=== PATIENT | female | born 1945 | race Caucasian/White ===

== ENCOUNTER → 2017-02-10 | Outpatient (CLI) | payer OTHER, MEDICARE ==
[~2017-02-10] MED LIST: CALC-393 PO; CLR10 PO; GLUC10007 PO; OMEP40CA PO
[2017-02-10 18:11] LABS: HEMATOCRIT 36.1 % (37-47); MEAN CELL VOLUME 90.5 fL (80-100); MEAN CORPUSCULAR HEMOGLOBIN 28.8 pg (25-34); MEAN CORPUSCULAR HGB CONC 31.9 g/dl (32-36); MEAN PLATELET VOLUME 9.5 fL (7.4-10.4); PLATELET COUNT 316 K/uL (130-400); RED BLOOD COUNT 3.99 M/uL (4.2-5.4); WHITE BLOOD COUNT 7.95 K/uL (4.8-10.8)
[2017-02-10 19:10] LABS: ALT/SGPT 24 U/L (12-78); AST/SGOT 15 U/L (15-37); BLOOD UREA NITROGEN 28 mg/dl (7-18); BUN/CREATININE RATIO 23.4 (10-20); CALCIUM 8.8 mg/dl (8.5-10.1); CARBON DIOXIDE 24 mmol/L (21-32); CHLORIDE 106 mmol/L (98-107); GLUCOSE 107 mg/dl (70-99); POTASSIUM 4.6 mmol/L (3.5-5.1); SODIUM 138 mmol/L (136-145)
[2017-02-10 19:13] LABS: ALB/GLOB RATIO 0.9 (0.9-2); ALKALINE PHOSPHATASE 104 U/L (45-117); CHOLESTEROL 239 mg/dl (0-200); CHOLESTEROL/HDL RATIO 4.8; HDL CHOLESTEROL 50 mg/dl; LDL CHOLESTEROL CALCULATED 133 mg/dl; TRIGLYCERIDES 278 mg/dl (0-150); VERY LOW DENSITY LIPOPROT CALC 56 mg/dl
[2017-02-11 05:51] LABS: ESTIMATED AVERAGE GLUCOSE 120 mg/dl; HA1C FLAG Normal (Normal)
== END | disposition home or self-care (01) ==
LOC: C.LABBFT 11:30
PROVIDERS: ATTEND Nurse Practitioner
DX: R73.01 Impaired fasting glucose (principal)

== ENCOUNTER → 2017-08-03 | Outpatient (CLI) | payer OTHER, MEDICARE ==
[2017-08-03 13:54] LABS: ALBUMIN 3.5 gm/dl (3.4-5.0); ALT/SGPT 21 U/L (12-78); BLOOD UREA NITROGEN 17 mg/dl (7-18); CARBON DIOXIDE 26 mmol/L (21-32); CHOLESTEROL 162 mg/dl (0-200); CREATININE 1.11 mg/dl (0.60-1.20); GLUCOSE 105 mg/dl (70-99); POTASSIUM 4.3 mmol/L (3.5-5.1); SODIUM 136 mmol/L (136-145)
[2017-08-03 13:57] LABS: ALKALINE PHOSPHATASE 99 U/L (45-117); AST/SGOT 18 U/L (15-37); LDL CHOLESTEROL CALCULATED 64 mg/dl; TOTAL PROTEIN 7.5 gm/dl (6.4-8.2)
== END | disposition home or self-care (01) ==
LOC: C.LABBFT 09:55
PROVIDERS: ATTEND Nurse Practitioner
DX: E78.00 Pure hypercholesterolemia, unspecified (principal)

== ENCOUNTER 2019-04-03 08:58 | Inpatient (IN) ==
[2019-04-03] MEDS ORDERED: ASPIRIN CHEW 324 MG PO STA (09:29)
[2019-04-03] MEDS ORDERED: NITROGLYCERIN SL 0.4 MG/TAB TAB SL STA (09:29)
[2019-04-03] MEDS ORDERED: SODIUM CHLORIDE 0.9% 1000ML 1,000 ML IV SCH (09:30)
[2019-04-03 09:37] LABS: Basophils # (auto) 0.02 K/uL (0-0.2); Basophils % (auto) 0.2 %; Eosinophils # (auto) 0.12 K/uL (0-0.5); Hematocrit (blood only) 33.2 % (37-47); Hemoglobin 10.9 g/dL (12.0-16.0); Immature Granulocytes # (auto) 0.03 K/uL (0.00-0.02); Immature Granulocytes % (auto) 0.2 %; Lymphocytes # (auto) 1.33 K/uL (1.2-3.4); Lymphocytes % (auto) 10.7 %; Mean Corpuscular Hemoglobin 27.5 pg (25-34); Mean Corpuscular Hgb Conc 32.8 g/dL (32-36); Mean Corpuscular Volume 83.6 fL (80-100); Mean Platelet Volume 9.3 fL (7.4-10.4); Monocytes # (auto) 1.17 K/uL (0.11-0.59); Monocytes % (auto) 9.5 %; Neutrophils # (auto) 9.71 K/uL (1.4-6.5); Neutrophils % (auto) 78.4 %; Platelet Count 303 K/uL (130-400); RDW Coefficient of Variation 15.2 % (11.5-14.5); RDW Standard Deviation 47.2 fL (36.4-46.3); Red Blood Count 3.97 M/uL (4.2-5.4); White Blood Count 12.38 K/uL (4.8-10.8)
[2019-04-03] MEDS: NITROGLYCERIN SL 0.4 MG/TAB TAB SL PRN ×2 (09:43→09:50)
[2019-04-03 09:47] LABS: INR 1.1 (0.9-1.1); Partial Thromboplastin Time 27.6 Seconds (21.0-31.0)
[2019-04-03 09:53] LABS: Alanine Aminotransferase 28 U/L (12-78); Albumin Level 2.9 gm/dl (3.4-5.0); Aspartate Aminotransferase 17 U/L (15-37); BUN Creatinine Ratio 14.6 (10-20); Blood Urea Nitrogen 14 mg/dl (7-18); Calcium 8.7 mg/dl (8.5-10.1); Carbon Dioxide 27 mmol/L (21-32); Chloride 100 mmol/L (98-107); Est GFR (African American) 69.3; Est GFR (Non-African American) 59.8; Glucose 155 mg/dl (70-99); Lipase 78 U/L (73-393); Potassium 3.4 mmol/L (3.5-5.1); Sodium 136 mmol/L (136-145)
[2019-04-03 09:58] LABS: Albumin Globulin Ratio 0.7 (0.9-2); Alkaline Phosphatase 139 U/L (45-117); Bilirubin,Total 0.8 mg/dl (0.2-1); Globulin 4.3 gm/dl (2.5-4.0); Total Protein 7.2 gm/dl (6.4-8.2); Troponin I < 0.015 ng/ml (0-0.045)
--- NOTE | 2019-04-03 10:14 | XRay Report ---
XR chest 1V portable HISTORY: 73 years-old Female Chest Pain acute atypical chest pain COMPARISON: Chest radiograph 07/12/2015 TECHNIQUE: Portable AP view of the chest FINDINGS: Moderate cardiomegaly. Calcified plaque of the thoracic aortic arch. Mild chronic interstitial coarse nik without pneumothorax, pleural effusion or lobar airspace consolidation. Right shoulder rotator c uff calcific tendinosis. Degenerative changes of the shoulders and spine. IMPRESSION: Cardiomegaly without acute process. The above report was generated using voice recognition software. It may contain grammatical, syntax o r spelling errors. Electronically signed by: Jez Seymour M.D. 04/03/2019 10:13 AM
--- NOTE | 2019-04-03 12:11 | History & Physical Report ---
Date of Service April 03, 2019 Assessment & Plan (1) Chest pain: Admits to PCU on telemetry. Vital signs every 4 hours. Troponin x3 every 6 hours with EKG. BNP pending. TTE pending. Consider consulting cardiology if any abnormality. Consider stress test inpatient if TTE abnormal. DVT prophylaxis Lovenox 40 mg subcu 2 daily. Full code Present on Admission?: Yes (2) HTN (hypertension): Continue amlodipine 5 mg p.o. daily and titrate up as needed if elevated blood pressure. Present on Admission?: Yes (3) Abnormal EKG: Could be related to electrolyte abnormalities such as hypokalemia and hypomagnesemia. We will replenish the electrolytes and recheck EKG with troponin x2. Continue monitoring electrolytes. Present on Admission?: Yes (4) GERD (gastroesophageal reflux disease): Continue omeprazole 40 mg delayed release daily. Present on Admission?: Yes History of Present Illness Chief Complaint: Chest pain Primary Care Provider: ARACELY Gonzalez Patient is a 73 years old female with past medical history of hypertension and GERD who presents to the emergency room with a complaint of chest pain for 2 days. Per patient pain is 6 of 10 in intensity and radiates to her left upper extremity and her jaw. Patient also reports having epigastric pain as well as abdominal pain which is vague in nature. Patient said that she did not have complete bowel movement for several days and one incomplete bowel movement occurred yesterday. This bowel movement was not satisfactory per patient. Patient did not notice any blood in the stool or melena. Patient states that nothing relieves her chest pain. Patient denies, fever, chills, frequency, urgency, melena, hematuria or dysuria, syncope or near syncope. EKG shows sinus tachycardia with a occasional PVCs, incomplete right bundle branch block and nonspecific T wave abnormalities. Labs are reviewed:WBC 12.38, hemoglobin 10.9, hematocrit 33.2, platelets 303, PT 11, INR 1.1, APTT 27.6, potassium low 3.4, sodium 136, BUN 14, creatinine 0.94, GFR 59.8, magnesium 1.6, alkaline phosphatase 139, troponin 0 0.015, patient had a lipid panel checked in April 01, 2019 which shows triglycerides of 114, cholesterol 117, LDL 53 and HDL of 41. Chest x-ray shows cardiomegaly without acute process. Decision was made to admit patient for observation on telemetry at PCU. Allergies Allergy/AdvReac Type Severity Reaction Status Date / Time linagliptin [From Tradjenta] AdvReac headaches Verified 10/29/18 12:44 / heart burn metformin AdvReac headaches Verified 10/29/18 12:43 Home Medications Home Medications Medication Instructions Recorded Confirmed Type amlodipine 5 mg tablet 5 mg PO DAILY #90 tab 03/15/19 04/03/19 Rx omeprazole 40 mg capsule,delayed 40 mg PO DAILY 03/31/19 04/03/19 History release Past Med/Surg History Medical History HTN (hypertension) Productive cough (Acute) Surgical History S/P cholecystectomy (Resolved) Family History Other Cancer Diabetes Hypertension Social History Preferred Language: Lao Communication Ability: Effective Ambulance Operations Supervisor Required: No Beliefs That Will Affect Care: None marital status: Current Living Situation: Spouse current occupational status: retired Other Information That Helps Us Care for You: No Feels Safe at Home: No Is there a partner from a previous relationship who is making you feel unsafe now?: No Any Concerns about Your Family Situation: No Would You Like to Speak to Someone About Your Situation: No Safety Concerns: Feels Safe At This Time Smoking Status: Former smoker Hx Alcohol Use: No Hx Substance Use: No Review of Systems Review of Systems: All systems reviewed & are unremarkable except as noted in HPI & below Physical Exam Constitutional: WD/WN, vitals as above well developed and + obese Eyes: PERRL, conjunctivae normal, anicteric sclerae ENMT: external ear and nose normal, oropharynx normal Neck: trachea midline, no thyromegaly Respiratory: normal respiratory effort, lungs clear to auscultation Cardiovascular: Heart Sounds: normal S1 and normal S2 Vessels: dorsalis pedis pulses present Gastrointestinal (Abdomen): normal bowel sounds, soft, nontender, no hepatosplenomegaly Musculoskeletal: no cyanosis or clubbing, extremities motor strength 5/5 Skin: no rashes, warm and dry Neurologic: patellar DTR's 2+ bilat, sensation intact Psychiatric: A+Ox3, euthymic affect Lymphatic: no cervical or axillary lymphadenopathy Results & Data Vital Signs (Past 12 Hours) Vital Signs Temp Pulse Pulse Resp BP BP Pulse Ox 04/03/19 10:30 90 24 101/69 95 04/03/19 10:00 99 H 21 125/73 94 04/03/19 09:55 101 H 20 106/80 92 04/03/19 09:49 102 H 16 125/69 95 04/03/19 09:41 99 H 23 127/80 95 04/03/19 09:36 98 H 23 146/87 H 95 04/03/19 09:21 97 H 20 94 04/03/19 09:05 36.6 C 99 H 68 20 154/88 H 154/88 H 94 04/03/19 09:03 102 H 20 154/88 H 97 Code Status & VTE Plan Code Status Full code VTE Prophylaxis Plan VTE Prophylaxis will be ordered: Yes PG Care Time/CCT Total # of Minutes Spent Total Time Spent with Patient: Total time spent is greater than 50% in coordination of care (as documented) at patient's floor/unit and/or counseling patient: (1) Chest pain Chest pain type: unspecified Qualified Code(s): R07.9 - Chest pain, unspecified
[2019-04-03] MEDS ORDERED: POTASSIUM CHLORIDE 20 MEQ TABCR PO STA (12:51)
[2019-04-03] MEDS ORDERED: MAGNESIUM SULFATE / D5W 1 GM/100 ML BAG IV ONE (12:51)
[2019-04-03] MEDS ORDERED: GLUCOSE 10 TABS/TUBE PO PRN (13:24)
[2019-04-03] MEDS ORDERED: ALUMINUM/MAGNESIUM SUSP 30 ML UDC PO PRN (13:24)
[2019-04-03] MEDS ORDERED: MAGNESIUM HYDROXIDE SUSP 30 ML UDC PO PRN (13:24)
[2019-04-03] MEDS ORDERED: CARBOHYDRATES FOR HYPOGLYCEMIA PO PRN (13:24)
[2019-04-03] MEDS ORDERED: GLUCOSE 40% GEL 15 GM TUBE PO PRN (13:24)
[2019-04-03] MEDS ORDERED: ACETAMINOPHEN 325 MG TAB PO PRN (13:24)
[2019-04-03] MEDS ORDERED: GLUCAGON FOR INJ 1 MG VIAL SQ PRN (13:24)
[2019-04-03] MEDS ORDERED: DEXTROSE 50% 50 ML SYRINGE IV PRN (13:24)
[2019-04-03] MEDS ORDERED: PHARMACY GLYCEMIC MGMT CONSULT PRN (13:35)
[2019-04-03 13:40] LABS: Basophils # (auto) 0.01 K/uL (0-0.2); Basophils % (auto) 0.1 %; Eosinophils # (auto) 0.05 K/uL (0-0.5); Eosinophils % (auto) 0.4 %; Hemoglobin 10.6 g/dL (12.0-16.0); Immature Granulocytes # (auto) 0.03 K/uL (0.00-0.02); Immature Granulocytes % (auto) 0.3 %; Lymphocytes # (auto) 1.43 K/uL (1.2-3.4); Lymphocytes % (auto) 12.5 %; Mean Corpuscular Hemoglobin 27.1 pg (25-34); Mean Corpuscular Hgb Conc 32.1 g/dL (32-36); Mean Corpuscular Volume 84.4 fL (80-100); Mean Platelet Volume 9.6 fL (7.4-10.4); Monocytes # (auto) 1.13 K/uL (0.11-0.59); Monocytes % (auto) 9.9 %; Neutrophils % (auto) 76.8 %; Platelet Count 290 K/uL (130-400); RDW Coefficient of Variation 15.2 % (11.5-14.5); RDW Standard Deviation 47.6 fL (36.4-46.3); Red Blood Count 3.91 M/uL (4.2-5.4); White Blood Count 11.45 K/uL (4.8-10.8)
[2019-04-03 13:58] LABS: Alanine Aminotransferase 29 U/L (12-78); Albumin Level 2.8 gm/dl (3.4-5.0); Aspartate Aminotransferase 15 U/L (15-37); BUN Creatinine Ratio 13.8 (10-20); Blood Urea Nitrogen 12 mg/dl (7-18); Calcium 8.4 mg/dl (8.5-10.1); Carbon Dioxide 28 mmol/L (21-32); Chloride 102 mmol/L (98-107); Creatinine Clr Calc Pharmacy 60.1 ml/min; Est GFR (African American) 77.1; Est GFR (Non-African American) 66.6; Glucose 120 mg/dl (70-99); Potassium 3.3 mmol/L (3.5-5.1); Sodium 137 mmol/L (136-145)
[2019-04-03] MEDS ORDERED: ENOXAPARIN INJ 40 MG/0.4 ML SYR SQ SCH (14:00)
[2019-04-03 14:03] LABS: Albumin Globulin Ratio 0.7 (0.9-2); Alkaline Phosphatase 139 U/L (45-117); Bilirubin,Total 0.6 mg/dl (0.2-1); Chol HDL Ratio 2; Cholesterol 108 mg/dl (0-200); Globulin 4.3 gm/dl (2.5-4.0); HDL Cholesterol 51 mg/dl; LDL Cholesterol Calculated 40 mg/dl; Total Protein 7.1 gm/dl (6.4-8.2); Triglycerides 85 mg/dl (0-150); Troponin I < 0.015 ng/ml (0-0.045); VLDL Cholesterol 17 mg/dl
--- NOTE | 2019-04-03 14:11 | Emergency Department Note ---
Entered by Ginny Whitney acting as a scribe for History of Present Illness General Chief complaint: Chest Pain Stated complaint: CHEST PAIN Time Seen by Provider: 04/03/19 09:25 Source: patient History of Present Illness Onset (ago): day(s) 2 Location: chest Radiation: other (left shoulder) Pain Consistency: + other (persistent) Maximum Pain Intensity: 6 Current Pain Intensity: 6 Quality: + other (pressure) Relieved By: not by medication (Pepto Bismol) Associated symptoms: + denies other symptoms (hemoptysis, shortness of breath, nausea, vomiting, diarrhea, hematuria, or hematochezia) and + other (mild cough) The patient is a 73 year old female that is presenting to the Emergency Room with complaints of persistent chest pain that started 2 days ago. The patient reports that the pain is located in the middle of her chest and radiates into her left shoulder. She states that that the pain is a pressure and that it feels like something sitting on her chest. She rates the pain as a 6/10 currently. She notes that she has a mild cough but denies any hemoptysis. She denies any shortness of breath, nausea, vomiting, diarrhea, hematuria, or hematochezia. She denies any recent abdominal surgeries or travel. She denies using any hormone pills or creams. She states that she took some Pepto Bismol due to some associated indigestion. The patient reports that she has a history of hypertension but denies any history of hyperlipidemia or diabetes. She notes she has a history of a cholecystectomy. She states that she quit smoking tobacco 15 years ago. Home Medications Home Medications Medication Instructions Recorded Confirmed Type amlodipine 5 mg tablet 5 mg PO DAILY #90 tab 03/15/19 04/03/19 Rx omeprazole 40 mg capsule,delayed 40 mg PO DAILY 03/31/19 04/03/19 History release Allergies Allergy/AdvReac Type Severity Reaction Status Date / Time linagliptin [From Tradjenta] AdvReac headaches Verified 10/29/18 12:44 / heart burn metformin AdvReac headaches Verified 10/29/18 12:43 Past Med/Surg History Medical History HTN (hypertension) Productive cough (Acute) Surgical History S/P cholecystectomy (Resolved) Family History Other Cancer Diabetes Hypertension Social History Preferred Language: Guatemalan Communication Ability: Effective Nuclear Instructor Required: No Beliefs That Will Affect Care: None marital status: Current Living Situation: Spouse current occupational status: retired Feels Safe at Home: No Is there a partner from a previous relationship who is making you feel unsafe now?: No Smoking Status: Former smoker Hx Alcohol Use: No Hx Substance Use: No Review of Systems See HPI for pertinent positives & negatives. and A total of 10 systems reviewed and were otherwise negative Physical Exam Vital Signs Vital Signs - 24 hr 04/03/19 09:03 04/03/19 09:05 04/03/19 09:21 Temperature 36.6 C Temperature Source Oral Pulse Rate 102 H 99 H 97 H Pulse Rate [Left Finger] 68 Pulse Rate from SpO2 Sensor 102 H Pulse Rhythm Regular Regular Pulse Strength Normal Respiratory Rate 20 20 20 Respiratory Effort / Characteristics Non-Labored Spontaneous Respiratory Depth Normal Respiratory Pattern Regular Blood Pressure 154/88 H 154/88 H Blood Pressure [Right Arm] 154/88 H Blood Pressure Mean 119 110 Blood Pressure Mean [Right Arm] 110 Blood Pressure Position Lying Blood Pressure Position [Right Arm] Lying Pulse Oximetry 97 94 94 Oxygen Delivery Method Room Air Room Air Sepsis Recent Fever Within 48 Hours No Sepsis New/Unexplained Change in Mental Status No Sepsis Action Taken by Nursing No Action Required 04/03/19 09:36 04/03/19 09:41 04/03/19 09:49 Temperature Temperature Source Pulse Rate 98 H 99 H 102 H Pulse Rate [Left Finger] Pulse Rate from SpO2 Sensor 96 H 99 H 98 H Pulse Rhythm Pulse Strength Respiratory Rate 23 23 16 Respiratory Effort / Characteristics Respiratory Depth Respiratory Pattern Blood Pressure 146/87 H 127/80 125/69 Blood Pressure [Right Arm] Blood Pressure Mean 98 91 94 Blood Pressure Mean [Right Arm] Blood Pressure Position Blood Pressure Position [Right Arm] Pulse Oximetry 95 95 95 Oxygen Delivery Method Sepsis Recent Fever Within 48 Hours Sepsis New/Unexplained Change in Mental Status Sepsis Action Taken by Nursing 04/03/19 09:55 04/03/19 10:00 04/03/19 10:30 Temperature Temperature Source Pulse Rate 101 H 99 H 90 Pulse Rate [Left Finger] Pulse Rate from SpO2 Sensor 98 H 89 90 Pulse Rhythm Pulse Strength Respiratory Rate 20 21 24 Respiratory Effort / Characteristics Respiratory Depth Respiratory Pattern Blood Pressure 106/80 125/73 101/69 Blood Pressure [Right Arm] Blood Pressure Mean 88 93 79 Blood Pressure Mean [Right Arm] Blood Pressure Position Blood Pressure Position [Right Arm] Pulse Oximetry 92 94 95 Oxygen Delivery Method Sepsis Recent Fever Within 48 Hours Sepsis New/Unexplained Change in Mental Status Sepsis Action Taken by Nursing 04/03/19 11:00 04/03/19 11:30 04/03/19 12:00 Temperature Temperature Source Pulse Rate 88 83 82 Pulse Rate [Left Finger] Pulse Rate from SpO2 Sensor 91 H 83 83 Pulse Rhythm Pulse Strength Respiratory Rate 20 19 22 Respiratory Effort / Characteristics Respiratory Depth Respiratory Pattern Blood Pressure 112/71 107/71 132/81 Blood Pressure [Right Arm] Blood Pressure Mean 88 82 101 Blood Pressure Mean [Right Arm] Blood Pressure Position Blood Pressure Position [Right Arm] Pulse Oximetry 96 95 96 Oxygen Delivery Method Sepsis Recent Fever Within 48 Hours Sepsis New/Unexplained Change in Mental Status Sepsis Action Taken by Nursing GENERAL: She is oriented to person, place, and time. She appears well-developed and well-nourished. She does not appear distressed. HENT: Exam performed. - Head: Normocephalic and atraumatic. - Right Ear: External ear normal. No mastoid tenderness. - Left Ear: External ear normal. No mastoid tenderness. - Mouth/Throat: The oropharynx is clear and moist. No trismus in the jaw. No dental abscesses or uvula swelling. No oropharyngeal exudate or tonsillar abscesses. EYES: Conjunctivae and EOM are normal. Pupils are equal, round, and reactive to light. Right eye exhibits no discharge. Left eye exhibits no discharge. No scleral icterus. NECK: Normal range of motion. Neck supple. No JVD present. No spinous process tenderness present. No carotid bruit present. No rigidity. No tracheal deviation and normal range of motion present. No Brudzinski's sign and no Kernig's sign noted. CV: Normal rate, regular rhythm, normal heart sounds and intact distal pulses. There is no peripheral edema. Palpable radial pulses bue. PULM/CHEST: Effort normal and breath sounds normal. No respiratory distress. No stridor. She has no wheezes. She has no rales. Chest Wall: She exhibits no tenderness. ABD: The abdomen is soft. Bowel sounds are normal. She has no distension. No mass is present. There is no tenderness. There is no rebound, no guarding, no Johnson's sign and no tenderness at McBurney's point. Rovsig negative MUSC/SKEL: Normal range of motion. There is no peripheral edema, tenderness or deformity. LYMPH: No cervical adenopathy. NEURO: She is alert and oriented to person, place, and time. She has normal strength. No cranial nerve deficit or sensory deficit. Coordination and gait normal. GCS eye subscore is 4. GCS verbal subscore is 5. GCS motor subscore is 6. cerbellar tests wnl. SKIN: Skin is warm and dry. She is not diaphoretic. PSYCH: She has a normal mood and affect. Her behavior is normal. Judgment and thought content normal. Course Course 0926:The patient was evaluated in room A12B. A complete history and physical examination was performed. 0942: Patients pain improved from a 6 to a 3 with 1 sublingual nitro. Vitals are stable. Patient will be given an additional nitro. 1035: Vital signs stable. Lab and imaging were within normal limits. Chest pain was improved status post sublingual nitro. Moderate heart score. Patient will be admitted for chest pain and to rule out ACS. I discussed the patient's case with Dr. Linton, [facility], who will evaluate the patient for further management and care. Administered Medications Nitroglycerin (Nitrostat) 0.4 mg SL PRN PRN PRN Reason: Chest Pain Stop: 05/03/19 09:44 Last Admin: 04/03/19 09:50 Dose: 0.4 mg Documented by: [id number] Admin: 04/03/19 09:43 Dose: 0.4 mg Documented by: [id number] Discontinued Medications Aspirin (Aspirin) 324 mg PO NOW STA Stop: 04/03/19 09:30 Last Admin: 04/03/19 09:36 Dose: 324 mg Documented by: [id number] Sodium Chloride (Nss 1000ml) 1,000 mls @ 125 mls/hr IV .Q8H JULIO Stop: 05/03/19 09:29 Last Infusion: 04/03/19 13:46 Dose: 0 mls/hr Documented by: [id number] Admin: 04/03/19 09:36 Dose: 125 mls/hr Documented by: [id number] Nitroglycerin (Nitrostat) 0.4 mg SL NOW STA Stop: 04/03/19 09:30 Last Admin: 04/03/19 09:36 Dose: 0.4 mg Documented by: [id number] Medical Decision Making Medical Records Attestation: I reviewed the patient's medical records. Home Medications Current Medication List: was personally reviewed by me Laboratory Data Attestation: I reviewed the patient's lab results. Result diagrams: 04/03/19 13:28 04/03/19 13:28 Lab Results 04/03/19 04/03/19 04/03/19 Range/Units 09:27 09:27 09:27 WBC 12.38 H (4.8-10.8) K/uL RBC 3.97 L (4.2-5.4) M/uL Hgb 10.9 L (12.0-16.0) g/dL Hct 33.2 L (37-47) % MCV 83.6 (80-100) fL MCH 27.5 (25-34) pg MCHC 32.8 (32-36) g/dL RDW Std Deviation 47.2 H (36.4-46.3) fL RDW Coeff of Mariam 15.2 H (11.5-14.5) % Plt Count 303 (130-400) K/uL MPV 9.3 (7.4-10.4) fL Immature Gran % (Auto) 0.2 % Neut % (Auto) 78.4 % Lymph % (Auto) 10.7 % Bay % (Auto) 9.5 % Eos % (Auto) 1.0 % Baso % (Auto) 0.2 % Immature Gran # (Auto) 0.03 H (0.00-0.02) K/uL Neut # (Auto) 9.71 H (1.4-6.5) K/uL Lymph # (Auto) 1.33 (1.2-3.4) K/uL Bay # (Auto) 1.17 H (0.11-0.59) K/uL Eos # (Auto) 0.12 (0-0.5) K/uL Baso # (Auto) 0.02 (0-0.2) K/uL PT 11.0 (9.0-12.0) Seconds INR 1.1 (0.9-1.1) APTT 27.6 (21.0-31.0) Seconds PTT Ratio 1.0 Sodium 136 (136-145) mmol/L Potassium 3.4 L (3.5-5.1) mmol/L Chloride 100 (98-107) mmol/L Carbon Dioxide 27 (21-32) mmol/L Anion Gap 9.0 (3-11) BUN 14 (7-18) mg/dl Creatinine 0.94 (0.6-1.2) mg/dl Est Cr Clr Drug Dosing 55.0 ml/min Est GFR ( Amer) 69.3 Est GFR (Non-Af Amer) 59.8 BUN/Creatinine Ratio 14.6 (10-20) Glucose 155 H (70-99) mg/dl Calcium 8.7 (8.5-10.1) mg/dl Magnesium (1.8-2.4) mg/dl Total Bilirubin 0.8 (0.2-1) mg/dl AST 17 (15-37) U/L ALT 28 (12-78) U/L Alkaline Phosphatase 139 H (45-117) U/L Troponin I < 0.015 (0-0.045) ng/ml Total Protein 7.2 (6.4-8.2) gm/dl Albumin 2.9 L (3.4-5.0) gm/dl Globulin 4.3 H (2.5-4.0) gm/dl Albumin/Globulin Ratio 0.7 L (0.9-2) Lipase 78 (73-393) U/L 04/03/19 Range/Units 09:27 WBC (4.8-10.8) K/uL RBC (4.2-5.4) M/uL Hgb (12.0-16.0) g/dL Hct (37-47) % MCV (80-100) fL MCH (25-34) pg MCHC (32-36) g/dL RDW Std Deviation (36.4-46.3) fL RDW Coeff of Mariam (11.5-14.5) % Plt Count (130-400) K/uL MPV (7.4-10.4) fL Immature Gran % (Auto) % Neut % (Auto) % Lymph % (Auto) % Bay % (Auto) % Eos % (Auto) % Baso % (Auto) % Immature Gran # (Auto) (0.00-0.02) K/uL Neut # (Auto) (1.4-6.5) K/uL Lymph # (Auto) (1.2-3.4) K/uL Bay # (Auto) (0.11-0.59) K/uL Eos # (Auto) (0-0.5) K/uL Baso # (Auto) (0-0.2) K/uL PT (9.0-12.0) Seconds INR (0.9-1.1) APTT (21.0-31.0) Seconds PTT Ratio Sodium (136-145) mmol/L Potassium (3.5-5.1) mmol/L Chloride (98-107) mmol/L Carbon Dioxide (21-32) mmol/L Anion Gap (3-11) BUN (7-18) mg/dl Creatinine (0.6-1.2) mg/dl Est Cr Clr Drug Dosing ml/min Est GFR ( Amer) Est GFR (Non-Af Amer) BUN/Creatinine Ratio (10-20) Glucose (70-99) mg/dl Calcium (8.5-10.1) mg/dl Magnesium 1.6 L (1.8-2.4) mg/dl Total Bilirubin (0.2-1) mg/dl AST (15-37) U/L ALT (12-78) U/L Alkaline Phosphatase (45-117) U/L Troponin I (0-0.045) ng/ml Total Protein (6.4-8.2) gm/dl Albumin (3.4-5.0) gm/dl Globulin (2.5-4.0) gm/dl Albumin/Globulin Ratio (0.9-2) Lipase (73-393) U/L Imaging Data Radiologist's Impression: Radiology results as stated below per my review and the radiologist's interpretation: XR chest 1V portable HISTORY: 73 years-old Female Chest Pain acute atypical chest pain COMPARISON: Chest radiograph 07/12/2015 TECHNIQUE: Portable AP view of the chest FINDINGS: Moderate cardiomegaly. Calcified plaque of the thoracic aortic arch. Mild chronic interstitial coarsening without pneumothorax, pleural effusion or lobar airspace consolidation. Right shoulder rotator cuff calcific tendinosis. Degenerative changes of the shoulders and spine. IMPRESSION: Cardiomegaly without acute process. The above report was generated using voice recognition software. It may contain grammatical, syntax or spelling errors. Electronically signed by: Jez Seymour M.D. 04/03/2019 10:13 AM ECG Data Attestation: I personally reviewed and interpreted this ECG as follows: Indication: + chest pain Rate (beats per minute): 103 Rhythm: + sinus rhythm ECG Intervals/blocks: + Normal QRS and + Normal QT ECG ST segments: no ST depression and no ST elevation ECG Findings: + PVCs and + Other (normal WA) Blood Pressure Blood Pressure Findings: Elevated blood pressure Blood Pressure Disposition: Referred to patients primary care provider [facility] Narrative 0926:The patient was evaluated in room A12B. A complete history and physical examination was performed. 0942: Patients pain improved from a 6 to a 3 with 1 sublingual nitro. Vitals are stable. Patient will be given an additional nitro. 1035: Vital signs stable. Lab and imaging were within normal limits. Chest pain was improved status post sublingual nitro. Moderate heart score. Patient will be admitted for chest pain and to rule out ACS. I discussed the patient's case with Dr. Linton, [facility], who will evaluate the patient for further management and care. Impression & Plan Chest pain Discharge Plan Visit Data *Final* Discharge Date/Time: 04/03/19 13:08 Chief Complaint: Chest Pain Stated Complaint: CHEST PAIN ED Provider: Howard Snyder Discharge Problem: Chest pain Patient Disposition: Admitted As Inpatient Discharge Instructions Interventions: ED Discharge Assessment Last Done: 04/03/19 13:08 Discharge Problem: Chest pain Qualifiers: Chest pain type: unspecified Qualified Code(s): R07.9 - Chest pain, unspecified The scribe's documentation has been prepared under my direction and personally reviewed by me in its entirety. I confirm that the note above accurately reflects all work, treatment, procedures, and medical decision making performed by me.
--- NOTE | 2019-04-03 14:13 | CT Scan Report ---
ABDOMEN AND PELVIS CT WITHOUT CONTRAST CT DOSE: 934.09 mGycm HISTORY: Acute generalized abdominal pain abdominal pain TECHNIQUE: Multiaxial CT images of the abdomen and pelvis were performed without contrast. A dose lo wering technique was utilized adhering to the principles of ALARA. COMPARISON STUDY: Chest radiograph of same day FINDINGS: Moderate sized pericardial effusion with mild pericardial thickening measuring up to 11 mm. Heavily m uscle calcifications the left ventricle. Trace pleural effusions. 2 mm solid nodule the basal left lo wer lobe, image 50 series 3 is indeterminate however likely benign. There is no pneumatosis or pneumo peritoneum. Limited evaluation of the solid abdominal organs without the use of IV contrast. Suggesti on of mild hepatic steatosis. Liver otherwise appears unremarkable. Spleen is unremarkable. Moderate generalized pancreatic atrophy. Gallbladder appears surgically absent. No significant biliary ductal dilation identified. Mild thickening of the adrenal glands. Bilateral renal cysts are noted. There is a 7.7 cm cyst of the left kidney with thin calcified internet marketing analyst al septations. 4 mm hyperdense focus of the inferior pole left kidney is indeterminate and may reflec t a hemorrhagic or proteinaceous cyst. No renal or ureteral calculi or obstructive uropathy. Ureters appear unremarkable. Mild urinary bladder wall thickening with partial distention. Uterus and adnexa are unremarkable. No adnexal mass lesion. Moderate calcified plaque the abdominal aorta without aneur ysm. No adenopathy. 3.0 x 2.2 cm ovoid hyperdense lesion noted within the left vaginal wall on image 435 series 3. No bowel obstruction. Colonic diverticulosis without acute diverticulitis. There is mild circumferent ial wall thickening involving a long segment of terminal ileum with mild perienteric stranding, image 236 series 3. Few scattered air-fluid levels are also noted. Normal appendix. Soft tissues are unrem arkable. Degenerative changes of the spine, pelvis and hips. No suspicious bone lesions. IMPRESSION: 1. Circumferential wall thickening involving a long segment of terminal ileum is suggestive of an inf ectious or inflammatory ileitis. 2. No bowel obstruction or pneumoperitoneum. 3. Colonic diverticulosis without acute diverticulitis. 4. Trace pleural effusions with moderate pericardial effusion. Additionally, there is mild associated pericardial thickening. Correlate clinically to exclude pericarditis. 5. Normal appendix. 6. Ovoid hyperdense lesion of the left vaginal wall, 3.0 cm is suggestive of a hemorrhagic lesion. Co rrelate with pelvic exam. 7. Additional findings as above. Electronically signed by: Jez Seymour M.D. 04/03/2019 2:11 PM
--- NOTE | 2019-04-03 15:19 | Pharmacy Report ---
Glycemic Control Consultation - Date of Service April 03, 2019 - Scope Scope: Glycemic Pharmacist consulted by Dr Linton on 04/03/19 for glycemic control and to write orders per [facility] inpatient glycemic control protocol - Objective Weight: 83.7 kg Accuchecks BSG (last 24hrs): 04/03/19 04/03/19 04/03/19 09:27 13:28 13:40 Glucose 155 H 120 H POC Glucose 116 H Laboratory Data (last 24hrs): 04/03/19 04/03/19 09:27 13:28 Potassium 3.4 L 3.3 L Carbon Dioxide 27 28 Anion Gap 9.0 7.0 Creatinine 0.94 0.86 Est Cr Clr Drug Dosing 55.0 60.1 HbA1c: 6.3 on 04/01/19 - Recent Pertinent Medications Outpatient Anti-diabetic Regimen: * None at home * A1c = 6.3 % on 04/01/19 Risk Factors for Insulin Resistance: * Infection: Cipro + Flagyl * Diet: T2DM - Assessment & Plan Assessment & Plan: ASSESSMENT: * 73 y/o F admitted with chest pain, possible GI infection. * Patient's HbA1c indicates patient is a pre-diabetic. She was not on any antidiabetic meds at home per the med reconciliation list. * BSGs this morning and afternoon are within goal. Therefore a basal insulin was not started on her. * Bolus Novolog dose based on weight and stress of 1. PLAN FOR INPATIENT GLYCEMIC CONTROL: * Basal insulin: None * Bolus insulin * NovoLog per scale ACHS or Q6hrs while NPO * Goal Range: Low 120 mg/dL - High 150 mg/dL * Correction Factor: 50 mg/dL/unit * Nutritional / Prandial insulin per carb ratio of 1 unit per 20 grams CHO consumed * Please note that the plan above was derived based on current level of insulin resistance and hospital stress. These recommendations are appropriate for inpatient admission only. Plan of care upon discharge will need to be reassessed to avoid potential outpatient hypo/hyperglycemia. Thank you.
[2019-04-03] MEDS ORDERED: KETOROLAC TROMETHAMINE 15 MG/ML VIAL IV PRN (15:24)
[2019-04-03] MEDS: POLYETHYLENE (MIRALAX) 17 GM PACK PO SCH (15:29)
[2019-04-03] MEDS ORDERED: CIPROFLOXACIN 400 MG/200 ML BAG IV SCH (16:00)
[2019-04-03] MEDS: INSULIN ASPART 100 UNITS/ML 3 ML PEN SC SCH ×2 (16:45→20:41)
[2019-04-03] MEDS: NSS + 20MEQ KCL 20 MEQ/1,000 ML BAG IV SCH (16:46)
[2019-04-03] MEDS: cefTRIAXone SODIUM 2,000 MG in DEXTROSE 5% 50 ML IV SCH (16:46)
[2019-04-03] MEDS: metroNIDAZOLE 500 MG/100 ML BAG IV SCH ×2 (17:28→23:34)
[2019-04-03 18:49] LABS: Troponin I < 0.015 ng/ml (0-0.045)
[2019-04-03] MEDS: COLCHICINE 0.6 MG TAB PO SCH (19:52)
[2019-04-04] MEDS: NSS + 20MEQ KCL 20 MEQ/1,000 ML BAG IV SCH ×2 (04:39→16:56)
[2019-04-04 07:04] LABS: Basophils # (auto) 0.02 K/uL (0-0.2); Basophils % (auto) 0.2 %; Eosinophils # (auto) 0.15 K/uL (0-0.5); Eosinophils % (auto) 1.7 %; Hematocrit (blood only) 32.5 % (37-47); Hemoglobin 10.4 g/dL (12.0-16.0); Immature Granulocytes # (auto) 0.02 K/uL (0.00-0.02); Immature Granulocytes % (auto) 0.2 %; Lymphocytes # (auto) 1.38 K/uL (1.2-3.4); Lymphocytes % (auto) 15.7 %; Mean Corpuscular Hemoglobin 26.9 pg (25-34); Mean Corpuscular Volume 84.2 fL (80-100); Mean Platelet Volume 9.4 fL (7.4-10.4); Monocytes # (auto) 0.85 K/uL (0.11-0.59); Monocytes % (auto) 9.7 %; Neutrophils # (auto) 6.38 K/uL (1.4-6.5); Neutrophils % (auto) 72.5 %; Platelet Count 268 K/uL (130-400); RDW Coefficient of Variation 15.3 % (11.5-14.5); RDW Standard Deviation 47.2 fL (36.4-46.3); Red Blood Count 3.86 M/uL (4.2-5.4)
[2019-04-04 07:15] LABS: Estimated Average Glucose 137 mg/dl; Hemoglobin A1C 6.4 % (4.5-5.6)
[2019-04-04 07:41] LABS: Albumin Globulin Ratio 0.6 (0.9-2); Albumin Level 2.5 gm/dl (3.4-5.0); BUN Creatinine Ratio 13.5 (10-20); Bilirubin,Total 0.5 mg/dl (0.2-1); Calcium 8.6 mg/dl (8.5-10.1); Creatinine Clr Calc Pharmacy 61.9 ml/min; Est GFR (African American) 79.4; Est GFR (Non-African American) 68.5; Globulin 3.9 gm/dl (2.5-4.0); Potassium 4.1 mmol/L (3.5-5.1); Total Protein 6.4 gm/dl (6.4-8.2)
[2019-04-04] MEDS: metroNIDAZOLE 500 MG/100 ML BAG IV SCH ×3 (08:32→23:58)
[2019-04-04] MEDS: COLCHICINE 0.6 MG TAB PO SCH ×2 (08:34→21:05)
[2019-04-04] MEDS: AMLODIPINE BESYLATE 5 MG TAB PO SCH (08:34)
[2019-04-04] MEDS: POLYETHYLENE (MIRALAX) 17 GM PACK PO SCH (08:35)
[2019-04-04] MEDS: PANTOprazole 40 MG TAB PO SCH (08:35)
[2019-04-04] MEDS: INSULIN ASPART 100 UNITS/ML 3 ML PEN SC SCH ×4 (08:38→21:01)
[2019-04-04] MEDS ORDERED: ASPIRIN 81 MG ECTAB PO SCH (09:00)
--- NOTE | 2019-04-04 09:36 | Cardiology Consultation ---
Date of Consultation April 04, 2019 Assessment & Plan (1) Pericarditis: Mrs. Suaceda is a 73 year old female with a history of Hypertension, Hyperlipidemia, Type 2 Diabetes Mellitus, GERD, CKD, and Mild Mitral Regurgitation who was admitted on 04/03/2019 with an Acute Pericarditis complicated by a moderate circumferential pericardial effusion and early signs of tamponade physiology (based on mitral inflow variation with inspiration). Patient started on Colchicine 0.6 mg b.i.d. -- and has had significant improvement in her positional chest pressure -- which is reassuring. However, considering her pericardial effusion / evidence of early tamponade -- we recommend keeping the patient for another day and repeating an Echocardiogram to see if the effusion is lessening with her current treatment. Recommend the following: -- Continue Colchicine 0.6 mg b.i.d. for 2 to 3 months. -- If symptoms recur or if pericardial effusion gets larger would consider starting an NSAID. -- Check ESR and TSH. -- Repeat Echocardiogram tomorrow to quantify volume of pericardial effusion and any hemodynamic impact. -- Closely monitor for symptoms of tamponade. (2) Pericardial effusion: -- As outlined above. (3) HTN (hypertension): -- Continue Amlodipine 5 mg daily. -- If BP's remain elevated - consider starting an ACEI or ARB. Thank you for asking us to see this patient in consultation. We will continue to follow. Supervising Physician Co-Signing Physician Notes Lázaro Randolph MD History of Present Illness Reason for Consultation: -- Acute Pericarditis. -- Moderate Pericardial Effusion. Requesting Physician: Kristopher Linton MD Attending Physician: Lázaro Randolph MD History of Present Illness Mrs. Sauceda is a 73 year old female with a history of Hypertension, Hyperlipidemia, Type 2 Diabetes Mellitus, GERD, CKD, and Mild Mitral Regurgitation who presented to [facility] on 04/03/2019 complaining of a central chest pressure that radiated to her left to her left arm and shoulder which had gradual onset over several hours, was worsened by lying down -- and she had some associated belching. Symptoms were not worsened with exertion or walking. Patient denies any associated nausea, vomiting, diaphoresis, or dyspnea. She denies any orthopnea or PND. She denies any unusual dyspnea on exertion or decreased exertional tolerance -- although she does not " really do that much at baseline. Her symptoms began 2 days before presenting to the ER. Patient also had some generalized abdominal discomfort and there is concern about an inflammatory process near the terminal ileum. Patient denies any recent fevers, chills, or recent infectious contacts. She denies any headache or stiff neck. No diarrhea or vomiting. CT Scan of Abdomen / Pelvis showed small bilateral pleural effusions and a moderate pericardial effusion, with thickening of the pericardial sac. Circumferential wall thickening involving a long segment of terminal ileum is suggestive of an infectious or inflammatory ileitis. Echocardiogram 04/03/2019 shows: -- Normal LV size and systolic function. -- LVEF 55% to 60%, no regional wall motion abnormalities. -- Type 1 LV diastolic dysfunction. -- Severe left atrial dilatation. -- Mild MR. -- Moderate circumferential pericardial effusion with early signs of tamponade physiology based on mitral inflow variation with inspiration. -- No LVH. -- Mild pulmonary hypertension. Estimated RVSP is 42 mmHg. Otherwise her evaluation shows normal cardiac enzymes, elevated leukocytes. She was hypokalemic and hypomagnesemic on admission but those have been corrected. NT Pro-BNP is normal at 533 pg/ml. ESR and TSH were not performed. EKG on admission showed sinus tachycardia at 103 bpm, incomplete RBBB, non-specific T wave abnormality, with a PVC and a PAC present. EKG 04/04/19 shows NSR with sinus arrhythmia at 83 bpm, no ectopy, no ST or T wave abnormalities. Patient was started on Colchicine 0.6 mg b.i.d. and has IV Toradol available as needed. She is also on empiric antibiotics. Patient is currently being seen in room 220 and is seated comfortably in a bedside chair. Patient has had significant improvement in her chest pressure and other symptoms. She has been walking in her room without any exertional symptoms. Patient did not sleep well last night because it was too noisy. She did sleep with the head of the at bed slightly elevated. She denies palpitations, syncope, or near syncope. She offers no other complaints or concerns. Allergies Allergy/AdvReac Type Severity Reaction Status Date / Time linagliptin [From Tradjenta] AdvReac headaches Verified 10/29/18 12:44 / heart burn metformin AdvReac headaches Verified 10/29/18 12:43 Home Medications Home Medications Medication Instructions Recorded Confirmed Type amlodipine 5 mg tablet 5 mg PO DAILY #90 tab 03/15/19 04/03/19 Rx omeprazole 40 mg capsule,delayed 40 mg PO DAILY 03/31/19 04/03/19 History release Patient History Medical History HTN (hypertension) Productive cough (Acute) Surgical History S/P cholecystectomy (Resolved) Family History Other Cancer Diabetes Hypertension Social History Preferred Language: Irish Communication Ability: Effective Mail Processor Required: No Beliefs That Will Affect Care: None marital status: Current Living Situation: Spouse current occupational status: retired Feels Safe at Home: No Is there a partner from a previous relationship who is making you feel unsafe now?: No Smoking Status: Former smoker Hx Alcohol Use: No Hx Substance Use: No Physical Exam Physical Exam: GENERAL: Patient in no acute distress. HEENT: Head is atraumatic, normocephalic. EOM's intact. Facies symmetric. No perioral cyanosis. NECK: JVP is approximately 9 cm sitting upright. Carotid upstrokes are + 2 bilaterally without obvious bruits. CHEST/LUNGS: Clear to auscultation throughout all lung wilkinson. No wheezes, rales, or crackles. CVS: S1 and S2 are regular without obvious murmurs, gallops, or rubs. PMI is nondisplaced. No lifts, heaves, or thrills. No abdominal aortic or renal bruits. ABDOMINAL EXAM: Bowel sounds are present. No masses, organomegaly, or tenderness. EXTREMITIES: No clubbing or cyanosis. No edema. Intact posterior tibial and radial pulses bilaterally. NEUROLOGIC EXAM: Patient is awake, alert, and oriented. Pleasant and cooperative. Answers questions appropriately. Speech is clear. Normal movement in all 4 extremities. Gait pattern was not assessed. TELEMETRY overnight shows sinus rhythm an with occasional PVC's and sinus bradycardia. Results & Data Vital Signs (Past 12 Hours) Vital Signs Temp Pulse Resp BP Pulse Ox 04/04/19 08:39 36.8 C 90 16 150/77 H 96 04/04/19 03:58 36.9 C 84 18 118/72 92 04/03/19 23:36 36.9 C 89 18 111/62 95 Laboratory Results Laboratory Results - last 24 hr 04/03/19 04/03/19 04/03/19 13:28 13:28 13:28 WBC 11.45 H RBC 3.91 L Hgb 10.6 L Hct 33.0 L MCV 84.4 MCH 27.1 MCHC 32.1 RDW Std Deviation 47.6 H RDW Coeff of Mariam 15.2 H Plt Count 290 MPV 9.6 Immature Gran % (Auto) 0.3 Neut % (Auto) 76.8 Lymph % (Auto) 12.5 Boyd % (Auto) 9.9 Eos % (Auto) 0.4 Baso % (Auto) 0.1 Immature Gran # (Auto) 0.03 H Neut # (Auto) 8.80 H Lymph # (Auto) 1.43 Boyd # (Auto) 1.13 H Eos # (Auto) 0.05 Baso # (Auto) 0.01 Sodium 137 Potassium 3.3 L Chloride 102 Carbon Dioxide 28 Anion Gap 7.0 BUN 12 Creatinine 0.86 Est Cr Clr Drug Dosing 60.1 Est GFR ( Amer) 77.1 Est GFR (Non-Af Amer) 66.6 BUN/Creatinine Ratio 13.8 Glucose 120 H POC Glucose Estimat Average Glucose Hemoglobin A1c Calcium 8.4 L Magnesium Total Bilirubin 0.6 AST 15 ALT 29 Alkaline Phosphatase 139 H Troponin I < 0.015 NT-Pro-B Natriuret Pep 533 Total Protein 7.1 Albumin 2.8 L Globulin 4.3 H Albumin/Globulin Ratio 0.7 L Triglycerides 85 Cholesterol 108 LDL Cholesterol, Calc 40 VLDL Cholesterol, Calc 17 HDL Cholesterol 51 Cholesterol/HDL Ratio 2 04/03/19 04/03/19 04/03/19 13:40 16:26 18:21 WBC RBC Hgb Hct MCV MCH MCHC RDW Std Deviation RDW Coeff of Mariam Plt Count MPV Immature Gran % (Auto) Neut % (Auto) Lymph % (Auto) Boyd % (Auto) Eos % (Auto) Baso % (Auto) Immature Gran # (Auto) Neut # (Auto) Lymph # (Auto) Boyd # (Auto) Eos # (Auto) Baso # (Auto) Sodium Potassium Chloride Carbon Dioxide Anion Gap BUN Creatinine Est Cr Clr Drug Dosing Est GFR ( Amer) Est GFR (Non-Af Amer) BUN/Creatinine Ratio Glucose POC Glucose 116 H 169 H Estimat Average Glucose Hemoglobin A1c Calcium Magnesium 2.0 Total Bilirubin AST ALT Alkaline Phosphatase Troponin I < 0.015 NT-Pro-B Natriuret Pep Total Protein Albumin Globulin Albumin/Globulin Ratio Triglycerides Cholesterol LDL Cholesterol, Calc VLDL Cholesterol, Calc HDL Cholesterol Cholesterol/HDL Ratio 04/03/19 04/04/19 04/04/19 20:14 06:40 06:40 WBC 8.80 RBC 3.86 L Hgb 10.4 L Hct 32.5 L MCV 84.2 MCH 26.9 MCHC 32.0 RDW Std Deviation 47.2 H RDW Coeff of Mariam 15.3 H Plt Count 268 MPV 9.4 Immature Gran % (Auto) 0.2 Neut % (Auto) 72.5 Lymph % (Auto) 15.7 Boyd % (Auto) 9.7 Eos % (Auto) 1.7 Baso % (Auto) 0.2 Immature Gran # (Auto) 0.02 Neut # (Auto) 6.38 Lymph # (Auto) 1.38 Boyd # (Auto) 0.85 H Eos # (Auto) 0.15 Baso # (Auto) 0.02 Sodium 139 Potassium 4.1 D Chloride 106 Carbon Dioxide 26 Anion Gap 7.0 BUN 11 Creatinine 0.84 Est Cr Clr Drug Dosing 61.9 Est GFR ( Amer) 79.4 Est GFR (Non-Af Amer) 68.5 BUN/Creatinine Ratio 13.5 Glucose 114 H POC Glucose 148 H Estimat Average Glucose Hemoglobin A1c Calcium 8.6 Magnesium Total Bilirubin 0.5 AST 28 ALT 37 Alkaline Phosphatase 158 H Troponin I NT-Pro-B Natriuret Pep Total Protein 6.4 Albumin 2.5 L Globulin 3.9 Albumin/Globulin Ratio 0.6 L Triglycerides 71 Cholesterol 108 LDL Cholesterol, Calc 50 VLDL Cholesterol, Calc 14 HDL Cholesterol 44 Cholesterol/HDL Ratio 3 04/04/19 04/04/19 06:40 07:23 WBC RBC Hgb Hct MCV MCH MCHC RDW Std Deviation RDW Coeff of Mariam Plt Count MPV Immature Gran % (Auto) Neut % (Auto) Lymph % (Auto) Boyd % (Auto) Eos % (Auto) Baso % (Auto) Immature Gran # (Auto) Neut # (Auto) Lymph # (Auto) Boyd # (Auto) Eos # (Auto) Baso # (Auto) Sodium Potassium Chloride Carbon Dioxide Anion Gap BUN Creatinine Est Cr Clr Drug Dosing Est GFR ( Amer) Est GFR (Non-Af Amer) BUN/Creatinine Ratio Glucose POC Glucose 121 H Estimat Average Glucose 137 Hemoglobin A1c 6.4 H Calcium Magnesium Total Bilirubin AST ALT Alkaline Phosphatase Troponin I NT-Pro-B Natriuret Pep Total Protein Albumin Globulin Albumin/Globulin Ratio Triglycerides Cholesterol LDL Cholesterol, Calc VLDL Cholesterol, Calc HDL Cholesterol Cholesterol/HDL Ratio Medications Administered Active Medications Generic Name Dose Route Start Last Admin Trade Name Freq PRN Reason Stop Dose Admin Acetaminophen 650 mg 04/03/19 13:24 Tylenol PO 05/03/19 13:23 Q4H PRN Pain or Fever Al Hydrox/Mg Hydrox/Simethicone 15 ml 04/03/19 13:24 Maalox PO 05/03/19 13:23 Q4H PRN Dyspepsia Amlodipine Besylate 5 mg 04/04/19 09:00 04/04/19 08:34 Norvasc PO 05/04/19 08:59 5 mg DAILY JULIO Administration Aspirin 81 mg 04/04/19 09:00 04/04/19 08:35 Ecotrin Ectab PO 05/04/19 08:59 81 mg QAM JULIO Administration Colchicine 0.6 mg 04/03/19 21:00 04/04/19 08:34 Colcrys PO 05/03/19 16:00 0.6 mg BID JULIO Administration Dextrose 25 - 50 ml 04/03/19 13:24 Dextrose 50% IV 05/03/19 13:23 UD PRN Hypoglycemia Protocol Protocol Enoxaparin Sodium 40 mg 04/03/19 14:00 04/03/19 15:29 Lovenox SQ 05/03/19 13:59 40 mg Q24H JULIO Administration Glucagon 1 mg 04/03/19 13:24 Glucagen SQ 05/03/19 13:23 UD PRN Hypoglycemia Protocol Protocol Glucose 4 - 8 tabs 04/03/19 13:24 Dex4 Glucose PO 05/03/19 13:23 UD PRN Hypoglycemia Protocol Protocol Glucose 15 - 30 gm 04/03/19 13:24 Glucose 40% PO 05/03/19 13:23 UD PRN Hypoglycemia Protocol Protocol Metronidazole 500 mg in 100 mls @ 100 mls/hr 04/03/19 16:00 04/04/19 09:39 Flagyl IV 04/13/19 15:59 Infused Q8H JULIO Infusion Potassium Chloride/Sodium Chloride 20 meq in 1,000 mls @ 80 mls/hr 04/03/19 16:00 04/04/19 04:39 Normal Saline W/20 Meq Kcl IV 05/03/19 15:59 80 mls/hr .[id number] JULIO Administration Ceftriaxone Sodium 2,000 mg/ 70 mls @ 100 mls/hr 04/03/19 16:00 04/04/19 10:07 Dextrose IV 04/13/19 15:59 100 mls/hr DAILY JULIO Administration Protocol Insulin Aspart 0 units 04/03/19 16:30 04/04/19 08:38 Novolog Flexpen SC 05/03/19 16:29 2 units ACHS JULIO Administration Ketorolac Tromethamine 15 mg 04/03/19 15:24 Toradol IV 04/08/19 15:23 Q6H PRN Pain Magnesium Hydroxide 30 ml 04/03/19 13:24 Milk Of Magnesia PO 05/03/19 13:23 Q12H PRN Constipation Miscellaneous 15 - 30 gm 04/03/19 13:24 Carbohydrates For Hypoglycemia PO 05/03/19 13:23 UD PRN Hypoglycemia Protocol Miscellaneous Information 1 ea 04/03/19 13:35 Consult Glycemic Management Pharmacy N/A 05/03/19 13:34 UD PRN Consult Protocol Nitroglycerin 0.4 mg 04/03/19 09:45 04/03/19 09:50 Nitrostat SL 05/03/19 09:44 0.4 mg PRN PRN Administration Chest Pain Pantoprazole Sodium 40 mg 04/04/19 09:00 04/04/19 08:35 Protonix PO 05/04/19 08:59 40 mg DAILY JULIO Administration Polyethylene Glycol 17 gm 04/03/19 13:24 04/04/19 08:35 Miralax Powder Packet PO 05/03/19 13:23 Not Given DAILY JULIO PG Care Time/CCT Total # of Minutes Spent Total Time Spent with Patient: Total time spent is greater than 50% in coordination of care (as documented) at patient's floor/unit and/or counseling patient:
[2019-04-04] MEDS: cefTRIAXone SODIUM 2,000 MG in DEXTROSE 5% 50 ML IV SCH (10:07)
--- NOTE | 2019-04-04 10:29 | Pharmacy Report ---
Pharmacy Glycemic Short Note 2 - Date of Service April 04, 2019 - Glycemic Short BSG Results (Last 24 hours): 04/03/19 04/03/19 04/03/19 13:28 13:40 16:26 Glucose 120 H POC Glucose 116 H 169 H 04/03/19 04/04/19 04/04/19 20:14 06:40 07:23 Glucose 114 H POC Glucose 148 H 121 H OUTPATIENT ANTIDIABETIC REGIMEN: * No home medications * A1c = 6.4% 04/04/19 ASSESSMENT: * Patient with no prior dx of DM admitted for CP, r/o ACS. A1c more consistent with a dx of "prediabetes". * ABX have been ordered for possible GI infxn. * Fasting BSG acceptable this AM with no basal insulin on board (FBS 121) * Patient is ordered a diet. Will remove the current prandial insulin dose and utilize correctional insulin alone to determine if patient requires any insulin coverage to maintain BSGs in the desired range during hospitalization. PLAN FOR INPATIENT GLYCEMIC CONTROL: * Basal insulin * None at this time * Bolus insulin * NovoLog per scale ACHS or Q6hrs while NPO * Goal Range: Low 120 mg/dL - High 150 mg/dL * Correction Factor: 30 mg/dL/unit * Nutritional / Prandial insulin: none at this time PLAN FOR DISCHARGE: * Given pt's A1c, it is unlikely this patient requires pharmacologic management for glycemic control on discharge.
--- NOTE | 2019-04-04 12:22 | Hospitalist Progress Note ---
Date of Service April 04, 2019 Assessment & Plan (1) Chest pain: Continue admit to PCU on telemetry. Vital signs every 4 hours. Troponin x3 negative. BNP 533 TTE : Normal left ventricular side and left systolic function ejection fraction 55 to 60%. No regional wall motion abnormalities. No left ventricular hypertrophy. Type I diastolic dysfunction. The left atrium is severely dilated. There is mild mitral regurgitation. Moderate circumferential pericardial effusion early signs of tamponade physiologically based. On mitral inflow variation with inspiration. Mild pulmonary hypertension. Estimated RVSP 42. Appreciate cardiology recommendations: Continue Colchicine 0.6 mg b.i.d. for 2 to 3 months. If symptoms recur or if pericardial effusion gets larger would consider starting an NSAID. Pending ESR and TSH. Repeat Echocardiogram tomorrow to quantify volume of pericardial effusion and any hemodynamic impact. Closely monitor for symptoms of tamponade. DVT prophylaxis Lovenox 40 mg subcu daily. Full code (2) HTN (hypertension): Continue amlodipine 5 mg p.o. daily and titrate up as needed if elevated blood pressure. Start ARB-s or JUJU if poorly controlled blood pressure. (3) Abnormal EKG: Could be related to electrolyte abnormalities such as hypokalemia and hypomagnesemia. We will replenish the electrolytes and recheck EKG with troponin x2. Continue monitoring electrolytes. (4) GERD (gastroesophageal reflux disease): Continue omeprazole 40 mg delayed release daily. Subjective Seen and examined at the bedside. Patient reports no chest pain at this time. Afebrile. P.o. intake slowly improving. Patient denies fever, chills, chest pain, shortness of breath, abdominal pain, frequency, urgency. Review of Systems Review of Systems: All systems reviewed & are unremarkable except as noted in HPI & below Physical Exam Constitutional: WD/WN, vitals as above well developed and + obese Eyes: PERRL, conjunctivae normal, anicteric sclerae ENMT: external ear and nose normal, oropharynx normal Neck: trachea midline, no thyromegaly Respiratory: normal respiratory effort, lungs clear to auscultation Cardiovascular: Heart Sounds: normal S1 and normal S2 Vessels: dorsalis pedis pulses present Gastrointestinal (Abdomen): normal bowel sounds, soft, nontender, no hepatosplenomegaly Musculoskeletal: no cyanosis or clubbing, extremities motor strength 5/5 Skin: no rashes, warm and dry Neurologic: patellar DTR's 2+ bilat, sensation intact Psychiatric: A+Ox3, euthymic affect Lymphatic: no cervical or axillary lymphadenopathy Results & Data Vital Signs (Past 12 Hours) Vital Signs Temp Pulse Resp BP Pulse Ox 04/04/19 11:09 36.7 C 79 20 120/72 96 04/04/19 08:39 36.8 C 90 16 150/77 H 96 04/04/19 03:58 36.9 C 84 18 118/72 92 PG Care Time/CCT Total # of Minutes Spent Total Time Spent with Patient: Total time spent is greater than 50% in coordination of care (as documented) at patient's floor/unit and/or counseling patient: (1) Chest pain Chest pain type: unspecified Qualified Code(s): R07.9 - Chest pain, unspecified
[2019-04-05] MEDS: NSS + 20MEQ KCL 20 MEQ/1,000 ML BAG IV SCH ×2 (05:22→18:00)
[2019-04-05 06:45] LABS: Basophils # (auto) 0.02 K/uL (0-0.2); Basophils % (auto) 0.2 %; Eosinophils # (auto) 0.13 K/uL (0-0.5); Eosinophils % (auto) 1.4 %; Hematocrit (blood only) 34.3 % (37-47); Immature Granulocytes # (auto) 0.02 K/uL (0.00-0.02); Immature Granulocytes % (auto) 0.2 %; Lymphocytes # (auto) 1.04 K/uL (1.2-3.4); Lymphocytes % (auto) 10.9 %; Mean Corpuscular Hemoglobin 26.8 pg (25-34); Mean Corpuscular Hgb Conc 32.1 g/dL (32-36); Mean Corpuscular Volume 83.5 fL (80-100); Mean Platelet Volume 9.4 fL (7.4-10.4); Monocytes # (auto) 1.11 K/uL (0.11-0.59); Monocytes % (auto) 11.6 %; Neutrophils # (auto) 7.21 K/uL (1.4-6.5); Neutrophils % (auto) 75.7 %; Platelet Count 267 K/uL (130-400); RDW Coefficient of Variation 15.2 % (11.5-14.5); RDW Standard Deviation 46.4 fL (36.4-46.3); Red Blood Count 4.11 M/uL (4.2-5.4); White Blood Count 9.53 K/uL (4.8-10.8)
[2019-04-05 07:23] LABS: Albumin Level 2.6 gm/dl (3.4-5.0); BUN Creatinine Ratio 11.2 (10-20); Calcium 8.4 mg/dl (8.5-10.1); Creatinine Clr Calc Pharmacy 69.5 ml/min; Est GFR (African American) 92.5; Est GFR (Non-African American) 79.8; Potassium 3.9 mmol/L (3.5-5.1)
[2019-04-05 07:26] LABS: Albumin Globulin Ratio 0.7 (0.9-2); Bilirubin,Total 0.5 mg/dl (0.2-1); Total Protein 6.6 gm/dl (6.4-8.2)
[2019-04-05] MEDS: INSULIN ASPART 100 UNITS/ML 3 ML PEN SC SCH ×4 (08:14→20:27)
[2019-04-05] MEDS: metroNIDAZOLE 500 MG/100 ML BAG IV SCH (08:14)
[2019-04-05] MEDS: PANTOprazole 40 MG TAB PO SCH (08:15)
[2019-04-05] MEDS: COLCHICINE 0.6 MG TAB PO SCH ×2 (08:15→20:46)
[2019-04-05] MEDS: POLYETHYLENE (MIRALAX) 17 GM PACK PO SCH (08:15)
[2019-04-05] MEDS: AMLODIPINE BESYLATE 5 MG TAB PO SCH (08:15)
[2019-04-05] MEDS: cefTRIAXone SODIUM 2,000 MG in DEXTROSE 5% 50 ML IV SCH (09:15)
--- NOTE | 2019-04-05 10:57 | Hospitalist Progress Note ---
Date of Service April 05, 2019 Assessment & Plan (1) Chest pain: Continue admit to PCU on telemetry. Vital signs every 4 hours. Troponin x3 negative. BNP 533 TTE : Normal left ventricular side and left systolic function ejection fraction 55 to 60%. No regional wall motion abnormalities. No left ventricular hypertrophy. Type I diastolic dysfunction. The left atrium is severely dilated. There is mild mitral regurgitation. Moderate circumferential pericardial effusion early signs of tamponade physiologically based. On mitral inflow variation with inspiration. Mild pulmonary hypertension. Estimated RVSP 42.The following TTE today shows moderate sized pericardial effusion which appears slightly smaller compared to 04/03/2019. Appreciate cardiology recommendations: Continue Colchicine 0.6 mg b.i.d. for 2 to 3 months. Pending ESR and TSH. Started Motrin by cardiology Closely monitor for symptoms of tamponade. DVT prophylaxis Lovenox 40 mg Subco daily. Full code (2) HTN (hypertension): Continue amlodipine 5 mg p.o. daily and titrate up as needed if elevated blood pressure. Start ARB-s or JUJU if poorly controlled blood pressure. (3) Abnormal EKG: Could be related to electrolyte abnormalities such as hypokalemia and hypomagnesemia. We will replenish the electrolytes and recheck EKG with troponin x2. Continue monitoring electrolytes. (4) GERD (gastroesophageal reflux disease): Continue omeprazole 40 mg delayed release daily. Subjective Seen and examined at the bedside. Patient reports no chest pain at this time. Afebrile. P.o. intake slowly improving. Patient denies fever, chills, chest pain, shortness of breath, abdominal pain, frequency, urgency. Physical Exam Constitutional: WD/WN, vitals as above well developed and + obese Eyes: PERRL, conjunctivae normal, anicteric sclerae ENMT: external ear and nose normal, oropharynx normal Neck: trachea midline, no thyromegaly Respiratory: normal respiratory effort, lungs clear to auscultation Cardiovascular: Heart Sounds: normal S1 and normal S2 Vessels: dorsalis pedis pulses present Gastrointestinal (Abdomen): normal bowel sounds, soft, nontender, no hepatosplenomegaly Musculoskeletal: no cyanosis or clubbing, extremities motor strength 5/5 Skin: no rashes, warm and dry Neurologic: patellar DTR's 2+ bilat, sensation intact Psychiatric: A+Ox3, euthymic affect Lymphatic: no cervical or axillary lymphadenopathy Results & Data Vital Signs (Past 12 Hours) Vital Signs Temp Pulse Pulse Resp BP Pulse Ox 04/05/19 07:30 37.1 C 80 18 130/76 93 04/05/19 03:27 37.0 C 81 18 130/76 93 04/05/19 00:05 89 04/04/19 23:11 36.8 C 78 18 121/61 92 PG Care Time/CCT Total # of Minutes Spent Total Time Spent with Patient: Total time spent is greater than 50% in coordination of care (as documented) at patient's floor/unit and/or counseling patient: (1) Chest pain Chest pain type: unspecified Qualified Code(s): R07.9 - Chest pain, unspecified
--- NOTE | 2019-04-05 17:31 | Cardiology Progress Note ---
Date of Service April 05, 2019 Assessment & Plan (1) Pericarditis: She continues to have discomfort. It is improved compared to yesterday but still is uncomfortable at times. She has been on colchicine, but we have held off on nonsteroidal agents. She has not had problems with the nonsteroidal agents in the past and I would recommend starting Motrin, I will order that now. Perhaps we can discontinue it after several days. (2) Pericardial effusion: Since the effusion is improved if anything we certainly should not consider pericardiocentesis. (3) HTN (hypertension): Except for a few isolated readings her blood pressure is quite good. Subjective She continues to have some pericarditis type pain, as well as some pressure and burping in her chest. I think it is all related to her pericarditis. She does feel better and during the night did not have much discomfort but then it did recur a little bit today but is improved. Physical Exam Physical Exam: Constitutional: Alert, cooperative and in no distress. Pulmonary: Clear to auscultation bilaterally. Cardiac: Regular rhythm with no murmur, gallop or rub. Abdomen: Soft, nontender with normal bowel sounds. Extremities: No edema. Skin: No rash, ecchymoses or petechiae. Results & Data Vital Signs (Past 12 Hours) Vital Signs Temp Pulse Resp BP Pulse Ox 04/05/19 15:35 36.4 C L 82 22 126/76 95 04/05/19 11:16 36.9 C 87 20 125/77 04/05/19 07:30 37.1 C 80 18 130/76 93 Laboratory Results Abnormal lab results 04/04/19 04/05/19 04/05/19 Range/Units 20:02 06:33 06:33 RBC 4.11 L (4.2-5.4) M/uL Hgb 11.0 L (12.0-16.0) g/dL Hct 34.3 L (37-47) % RDW Std Deviation 46.4 H (36.4-46.3) fL RDW Coeff of Mariam 15.2 H (11.5-14.5) % Neut # (Auto) 7.21 H (1.4-6.5) K/uL Lymph # (Auto) 1.04 L (1.2-3.4) K/uL Scott # (Auto) 1.11 H (0.11-0.59) K/uL Glucose 127 H (70-99) mg/dl POC Glucose 119 H (70-99) Calcium 8.4 L (8.5-10.1) mg/dl Alkaline Phosphatase 153 H (45-117) U/L Albumin 2.6 L (3.4-5.0) gm/dl Albumin/Globulin Ratio 0.7 L (0.9-2) 04/05/19 04/05/19 04/05/19 Range/Units 07:22 11:04 16:04 RBC (4.2-5.4) M/uL Hgb (12.0-16.0) g/dL Hct (37-47) % RDW Std Deviation (36.4-46.3) fL RDW Coeff of Mariam (11.5-14.5) % Neut # (Auto) (1.4-6.5) K/uL Lymph # (Auto) (1.2-3.4) K/uL Scott # (Auto) (0.11-0.59) K/uL Glucose (70-99) mg/dl POC Glucose 125 H 148 H 166 H (70-99) Calcium (8.5-10.1) mg/dl Alkaline Phosphatase (45-117) U/L Albumin (3.4-5.0) gm/dl Albumin/Globulin Ratio (0.9-2) Diagnostic Findings Telemetry: PG Care Time/CCT Total # of Minutes Spent Total Time Spent with Patient: Total time spent is greater than 50% in coordination of care (as documented) at patient's floor/unit and/or counseling patient:
[2019-04-05] MEDS: IBUPROFEN 200 MG TAB PO SCH ×2 (18:14→23:32)
[2019-04-05] MEDS: CEFDINIR 300 MG CAP PO SCH (20:47)
[2019-04-05] MEDS: metroNIDAZOLE 500 MG TAB PO SCH (20:47)
[2019-04-06] MEDS: NSS + 20MEQ KCL 20 MEQ/1,000 ML BAG IV SCH ×2 (05:47→18:50)
[2019-04-06] MEDS: IBUPROFEN 200 MG TAB PO SCH ×4 (05:47→22:59)
[2019-04-06 06:51] LABS: Basophils # (auto) 0.01 K/uL (0-0.2); Basophils % (auto) 0.1 %; Eosinophils # (auto) 0.28 K/uL (0-0.5); Eosinophils % (auto) 3.7 %; Hematocrit (blood only) 35.7 % (37-47); Hemoglobin 11.5 g/dL (12.0-16.0); Immature Granulocytes # (auto) 0.02 K/uL (0.00-0.02); Immature Granulocytes % (auto) 0.3 %; Lymphocytes # (auto) 1.43 K/uL (1.2-3.4); Lymphocytes % (auto) 18.9 %; Mean Corpuscular Hemoglobin 26.9 pg (25-34); Mean Corpuscular Hgb Conc 32.2 g/dL (32-36); Mean Corpuscular Volume 83.4 fL (80-100); Mean Platelet Volume 9.7 fL (7.4-10.4); Monocytes # (auto) 0.85 K/uL (0.11-0.59); Monocytes % (auto) 11.2 %; Neutrophils # (auto) 4.99 K/uL (1.4-6.5); Neutrophils % (auto) 65.8 %; Platelet Count 323 K/uL (130-400); RDW Coefficient of Variation 15.2 % (11.5-14.5); RDW Standard Deviation 46.6 fL (36.4-46.3); Red Blood Count 4.28 M/uL (4.2-5.4); White Blood Count 7.58 K/uL (4.8-10.8)
[2019-04-06 07:32] LABS: Albumin Globulin Ratio 0.7 (0.9-2); Albumin Level 2.8 gm/dl (3.4-5.0); BUN Creatinine Ratio 10.4 (10-20); Bilirubin,Total 0.5 mg/dl (0.2-1); Calcium 8.7 mg/dl (8.5-10.1); Est GFR (African American) 84.2; Est GFR (Non-African American) 72.6; Globulin 4.3 gm/dl (2.5-4.0); Potassium 3.6 mmol/L (3.5-5.1); Total Protein 7.1 gm/dl (6.4-8.2)
[2019-04-06 07:43] LABS: Thyroid Stimulating Hormone 2.05 uIu/ml (0.300-4.500)
--- NOTE | 2019-04-06 08:27 | Pharmacy Report ---
Pharmacy Glycemic Short Note 2 - Date of Service April 06, 2019 - Glycemic Short BSG Results (Last 24 hours): 04/05/19 04/05/19 04/05/19 07:22 11:04 16:04 Glucose POC Glucose 125 H 148 H 166 H 04/05/19 04/06/19 04/06/19 19:57 06:34 07:19 Glucose 125 H POC Glucose 150 H 132 H OUTPATIENT ANTIDIABETIC REGIMEN: * No home medications * A1c = 6.4% 04/04/19 ASSESSMENT: 04/06 * BSGs ranged 142-166 over the last 24 hrs * She is ordered correctional insulin only. Will continue the same today. * We may consider decreasing the frequency of monitoring if BSGs continue to be well controlled with infrequent correctional insulin 04/05 * BSGs well controlled, will continue current orders 04/04 * Patient with no prior dx of DM admitted for CP, r/o ACS. A1c more consistent with a dx of "prediabetes". * ABX have been ordered for possible GI infxn. * Fasting BSG acceptable this AM with no basal insulin on board (FBS 121) * Patient is ordered a diet. Will remove the current prandial insulin dose and utilize correctional insulin alone to determine if patient requires any insulin coverage to maintain BSGs in the desired range during hospitalization. PLAN FOR INPATIENT GLYCEMIC CONTROL: * Basal insulin * None at this time * Bolus insulin * NovoLog per scale ACHS or Q6hrs while NPO * Goal Range: Low 120 mg/dL - High 150 mg/dL * Correction Factor: 30 mg/dL/unit * Nutritional / Prandial insulin: none at this time PLAN FOR DISCHARGE: * Given pt's A1c, it is unlikely this patient requires pharmacologic management for glycemic control on discharge.
[2019-04-06] MEDS: PANTOprazole 40 MG TAB PO SCH (08:31)
[2019-04-06] MEDS: COLCHICINE 0.6 MG TAB PO SCH ×2 (08:31→20:13)
[2019-04-06] MEDS: CEFDINIR 300 MG CAP PO SCH ×2 (08:31→20:13)
[2019-04-06] MEDS: metroNIDAZOLE 500 MG TAB PO SCH ×3 (08:31→20:13)
[2019-04-06] MEDS: AMLODIPINE BESYLATE 5 MG TAB PO SCH (08:31)
[2019-04-06] MEDS: POLYETHYLENE (MIRALAX) 17 GM PACK PO SCH (08:32)
[2019-04-06] MEDS: INSULIN ASPART 100 UNITS/ML 3 ML PEN SC SCH ×4 (08:32→20:44)
--- NOTE | 2019-04-06 09:57 | Hospitalist Progress Note ---
Date of Service April 06, 2019 Assessment & Plan (1) Chest pain: Continue admit to PCU on telemetry. Vital signs every 4 hours. Troponin x3 negative. BNP 533 TTE : Normal left ventricular side and left systolic function ejection fraction 55 to 60%. No regional wall motion abnormalities. No left ventricular hypertrophy. Type I diastolic dysfunction. The left atrium is severely dilated. There is mild mitral regurgitation. Moderate circumferential pericardial effusion early signs of tamponade physiologically based. On mitral inflow variation with inspiration. Mild pulmonary hypertension. Estimated RVSP 42.The following TTE today shows moderate sized pericardial effusion which appears slightly smaller compared to 04/03/2019. Appreciate cardiology recommendations: Continue Colchicine 0.6 mg b.i.d. for 3 to 6 months. Motrin 400 mg PO Q6h for shorter duration. TTE tomorrow Follow up with cardiology in 1-2 weeks with TTE at that time. Closely monitor for symptoms of tamponade. DVT scd and teds. Full code (2) HTN (hypertension): Continue amlodipine 5 mg p.o. daily and titrate up as needed if elevated blood pressure. Start ARB-s or JUJU if poorly controlled blood pressure. (3) Abnormal EKG: Could be related to electrolyte abnormalities such as hypokalemia and hypomagnesemia. We will replenish the electrolytes and recheck EKG with troponin x2. Continue monitoring electrolytes. (4) GERD (gastroesophageal reflux disease): Continue omeprazole 40 mg delayed release daily. Subjective Patient seen and examined at the bedside. Patient reports slow improvement and still complains of chest pain. She feels little bit better than yesterday.Patient denies fever chills, shortness of breath, abdominal pain, frequency, urgency. Review of Systems Review of Systems: All systems reviewed & are unremarkable except as noted in HPI & below Physical Exam Constitutional: WD/WN, vitals as above well developed and + obese Eyes: PERRL, conjunctivae normal, anicteric sclerae ENMT: external ear and nose normal, oropharynx normal Neck: trachea midline, no thyromegaly Respiratory: normal respiratory effort, lungs clear to auscultation Cardiovascular: Heart Sounds: normal S1 and normal S2 Vessels: dorsalis pedis pulses present Gastrointestinal (Abdomen): normal bowel sounds, soft, nontender, no hepatosplenomegaly Musculoskeletal: no cyanosis or clubbing, extremities motor strength 5/5 Skin: no rashes, warm and dry Neurologic: patellar DTR's 2+ bilat, sensation intact Psychiatric: A+Ox3, euthymic affect Lymphatic: no cervical or axillary lymphadenopathy Results & Data Vital Signs (Past 12 Hours) Vital Signs Temp Pulse Pulse Resp BP Pulse Ox 04/06/19 07:50 80 04/06/19 07:37 36.5 C 80 18 134/76 96 04/06/19 02:54 36.5 C 74 18 116/73 97 04/06/19 00:57 80 04/05/19 23:24 36.3 C L 78 18 133/76 94 PG Care Time/CCT Total # of Minutes Spent Total Time Spent with Patient: Total time spent is greater than 50% in coordination of care (as documented) at patient's floor/unit and/or counseling patient: (1) Chest pain Chest pain type: unspecified Qualified Code(s): R07.9 - Chest pain, unspecified
--- NOTE | 2019-04-06 11:25 | Cardiology Progress Note ---
Date of Service April 06, 2019 Assessment & Plan (1) Pericarditis: She feels considerably better now on Motrin 400 mg every 6 hours since yesterday. She is also on colchicine for several days. I would recommend continuing these as an outpatient, we might be able to switch the Motrin to 400 mg every 8 hours at discharge to make a little easier, the colchicine I would continue twice daily for probably 3 to 6 months. The Motrin I would probably stop sooner. I will arrange follow-up for her in the office in a week or 2 with an echo to check for the effusion. (2) Pericardial effusion: if the effusion remains improved we certainly should not consider pericardiocentesis. I would like to repeat the echo tomorrow morning as a limited study to look for stability before she goes home. (3) HTN (hypertension): Except for a few isolated readings of high blood pressure her blood pressure is quite good, she has not had hypotension. Subjective She is feeling considerably better today after starting Motrin yesterday. No further chest discomfort. She has been ambulatory and is not having difficulty with that. Physical Exam Physical Exam: Constitutional: Alert, cooperative and in no distress. Pulmonary: Clear to auscultation bilaterally. Cardiac: Regular rhythm with no murmur, gallop or rub. Abdomen: Soft, nontender with normal bowel sounds. Extremities: No edema. Skin: No rash, ecchymoses or petechiae. Results & Data Vital Signs (Past 12 Hours) Vital Signs Temp Pulse Pulse Resp BP Pulse Ox 04/06/19 11:13 36.4 C L 79 18 117/74 97 04/06/19 07:50 80 04/06/19 07:37 36.5 C 80 18 134/76 96 04/06/19 02:54 36.5 C 74 18 116/73 97 04/06/19 00:57 80 04/05/19 23:24 36.3 C L 78 18 133/76 94 Laboratory Results Abnormal lab results 04/05/19 04/05/19 04/06/19 Range/Units 16:04 19:57 06:34 Hgb (12.0-16.0) g/dL Hct (37-47) % RDW Std Deviation (36.4-46.3) fL RDW Coeff of Mariam (11.5-14.5) % [place] # (Auto) (0.11-0.59) K/uL ESR 85 H (0-21) mm/hr Glucose (70-99) mg/dl POC Glucose 166 H 150 H (70-99) Alkaline Phosphatase (45-117) U/L Albumin (3.4-5.0) gm/dl Globulin (2.5-4.0) gm/dl Albumin/Globulin Ratio (0.9-2) 04/06/19 04/06/19 04/06/19 Range/Units 06:34 06:34 07:19 Hgb 11.5 L (12.0-16.0) g/dL Hct 35.7 L (37-47) % RDW Std Deviation 46.6 H (36.4-46.3) fL RDW Coeff of Mariam 15.2 H (11.5-14.5) % [place] # (Auto) 0.85 H (0.11-0.59) K/uL ESR (0-21) mm/hr Glucose 125 H (70-99) mg/dl POC Glucose 132 H (70-99) Alkaline Phosphatase 143 H (45-117) U/L Albumin 2.8 L (3.4-5.0) gm/dl Globulin 4.3 H (2.5-4.0) gm/dl Albumin/Globulin Ratio 0.7 L (0.9-2) Diagnostic Findings Telemetry: Sinus rhythm, PVCs. No significant arrhythmia. PG Care Time/CCT Total # of Minutes Spent Total Time Spent with Patient: Total time spent is greater than 50% in coordination of care (as documented) at patient's floor/unit and/or counseling patient:
[2019-04-06] MEDS ORDERED: POTASSIUM CHLORIDE 20 MEQ TABCR PO ONE (18:30)
[2019-04-07 06:27] LABS: Basophils # (auto) 0.02 K/uL (0-0.2); Basophils % (auto) 0.3 %; Eosinophils # (auto) 0.33 K/uL (0-0.5); Eosinophils % (auto) 4.3 %; Hematocrit (blood only) 32.1 % (37-47); Hemoglobin 10.1 g/dL (12.0-16.0); Immature Granulocytes # (auto) 0.01 K/uL (0.00-0.02); Immature Granulocytes % (auto) 0.1 %; Lymphocytes # (auto) 1.15 K/uL (1.2-3.4); Lymphocytes % (auto) 14.9 %; Mean Corpuscular Hemoglobin 26.3 pg (25-34); Mean Corpuscular Hgb Conc 31.5 g/dL (32-36); Mean Corpuscular Volume 83.6 fL (80-100); Mean Platelet Volume 9.7 fL (7.4-10.4); Monocytes # (auto) 0.94 K/uL (0.11-0.59); Monocytes % (auto) 12.2 %; Neutrophils # (auto) 5.28 K/uL (1.4-6.5); Neutrophils % (auto) 68.2 %; Platelet Count 282 K/uL (130-400); RDW Coefficient of Variation 15.2 % (11.5-14.5); RDW Standard Deviation 46.8 fL (36.4-46.3); Red Blood Count 3.84 M/uL (4.2-5.4); White Blood Count 7.73 K/uL (4.8-10.8)
[2019-04-07] MEDS: IBUPROFEN 200 MG TAB PO SCH ×2 (06:27→12:03)
[2019-04-07 07:04] LABS: Albumin Level 2.5 gm/dl (3.4-5.0); BUN Creatinine Ratio 14.5 (10-20); Creatinine Clr Calc Pharmacy 80.9 ml/min; Est GFR (African American) 102.4; Est GFR (Non-African American) 88.4; Potassium 3.9 mmol/L (3.5-5.1)
[2019-04-07 07:07] LABS: Albumin Globulin Ratio 0.7 (0.9-2); Bilirubin,Total 0.3 mg/dl (0.2-1); Globulin 3.6 gm/dl (2.5-4.0); Total Protein 6.1 gm/dl (6.4-8.2)
[2019-04-07] MEDS: NSS + 20MEQ KCL 20 MEQ/1,000 ML BAG IV SCH (07:32)
[2019-04-07] MEDS: POLYETHYLENE (MIRALAX) 17 GM PACK PO SCH (07:33)
[2019-04-07] MEDS: INSULIN ASPART 100 UNITS/ML 3 ML PEN SC SCH ×2 (08:17→12:02)
[2019-04-07] MEDS: metroNIDAZOLE 500 MG TAB PO SCH ×2 (08:20→15:44)
[2019-04-07] MEDS: CEFDINIR 300 MG CAP PO SCH (08:20)
[2019-04-07] MEDS: AMLODIPINE BESYLATE 5 MG TAB PO SCH (08:20)
[2019-04-07] MEDS: PANTOprazole 40 MG TAB PO SCH (08:21)
[2019-04-07] MEDS: COLCHICINE 0.6 MG TAB PO SCH (08:21)
--- NOTE | 2019-04-07 11:15 | Hospitalist Progress Note ---
Date of Service April 07, 2019 Assessment & Plan (1) Chest pain: Patient is feeling better today. Plan to discharge home today. Per echocardiogram pericardial effusion is smaller. Follow-up with cardiology within 2 weeks. Continue colchicine 0.6 mg b.i.d. for 3 to 6 months. Motrin 400 mg PO every 8 hours for 1 month. Patient was advised if any blood in stool or any abdominal discomfort stool hold ibuprofen and discussed with her doctor if she should restart it. Pantoprazole 40 mg p.o. daily for 1 months. Repeat TTE at your visit with cardiology in 1 to 2 weeks. If any worsening of symptoms report immediately to the emergency room. Full code Present on Admission?: Yes (2) HTN (hypertension): Pressure well controlled. Continue amlodipine 5 mg p.o. daily and titrate up as needed if elevated blood pressure. (3) Abnormal EKG: It was related to pericarditis and pericardial effusion associated with electrolyte abnormality. Replenish electrolytes and treat pericarditis and pericardial effusion. Present on Admission?: Yes (4) GERD (gastroesophageal reflux disease): Patient is switched to pantoprazole from omeprazole. She was advised to take pantoprazole while she is on ibuprofen. Patient should discontinue or take pantoprazole only as needed after she completes therapy with ibuprofen. Present on Admission?: Yes (5) Ileitis: Possibly bacterial in origin. Patient reports no diarrhea. Patient was treated with ceftriaxone and metronidazole while in the hospital. Switched to cefdinir 300 mg p.o. twice daily for 5 additional days and metronidazole p.o. 3 times daily for 5 more days. Present on Admission?: Yes Subjective Patient seen and examined at the bedside. Patient feels much better, her chest pain is completely gone. Good p.o. intake. Patient denies fever chills, shortness of breath, abdominal pain, frequency, urgency. Patient is eager to go home. Her echocardiogram shows that the pericardial effusion is smaller. No cardiac tamponade, shortness of breath or any other complaint. Review of Systems Review of Systems: All systems reviewed & are unremarkable except as noted in HPI & below Physical Exam Constitutional: WD/WN, vitals as above well developed and + obese Eyes: PERRL, conjunctivae normal, anicteric sclerae ENMT: external ear and nose normal, oropharynx normal Neck: trachea midline, no thyromegaly Respiratory: normal respiratory effort, lungs clear to auscultation Cardiovascular: Heart Sounds: normal S1 and normal S2 Vessels: dorsalis pedis pulses present Gastrointestinal (Abdomen): normal bowel sounds, soft, nontender, no hepatosplenomegaly Musculoskeletal: no cyanosis or clubbing, extremities motor strength 5/5 Skin: no rashes, warm and dry Neurologic: patellar DTR's 2+ bilat, sensation intact Psychiatric: A+Ox3, euthymic affect Lymphatic: no cervical or axillary lymphadenopathy Results & Data Vital Signs (Past 12 Hours) Vital Signs Temp Pulse Pulse Resp BP Pulse Ox 04/07/19 11:12 36.7 C 79 20 113/70 96 04/07/19 08:00 73 04/07/19 07:24 36.7 C 84 18 129/86 96 04/07/19 03:05 36.8 C 76 18 123/76 97 04/06/19 23:22 36.8 C 82 18 115/79 97 PG Care Time/CCT Total # of Minutes Spent Total Time Spent with Patient: Total time spent is greater than 50% in coordination of care (as documented) at patient's floor/unit and/or counseling patient: (1) Chest pain Chest pain type: unspecified Qualified Code(s): R07.9 - Chest pain, unspecified
--- NOTE | 2019-04-07 13:39 | Cardiology Progress Note ---
Date of Service April 07, 2019 Assessment & Plan (1) Pericarditis: She feels considerably better now on colchicine and Motrin. I would recommend continuing these as an outpatient, we might be able to switch the Motrin to 400 mg every 8 hours at discharge to make a little easier, the colc hicine I would continue twice daily for probably 3 to 6 months. The Motrin I would probably stop sooner. I will arrange follow-up for her in the office in a week or two with an echo to follow the effusion. (2) Pericardial effusion: The effusion is considerably improved. I agree with discharge if indicated otherwise. I have arranged a followup with an echo and placed it in the discharge paperwork. (3) HTN (hypertension): Except for a few isolated readings of high blood pressure her blood pressure is quite good, she has not had hypotension. Subjective Feels well today, no further chest pain Physical Exam Physical Exam: Constitutional: Alert, cooperative and in no distress. Pulmonary: Clear to auscultation bilaterally. Cardiac: Regular rhythm with no murmur, gallop or rub. Abdomen: Soft, nontender with normal bowel sounds. Extremities: No edema. Skin: No rash, ecchymoses or petechiae. Results & Data Vital Signs (Past 12 Hours) Vital Signs Temp Pulse Pulse Resp BP Pulse Ox 04/07/19 11:12 36.7 C 79 20 113/70 96 04/07/19 08:00 73 04/07/19 07:24 36.7 C 84 18 129/86 96 04/07/19 03:05 36.8 C 76 18 123/76 97 Laboratory Results Abnormal lab results 04/06/19 04/06/19 04/07/19 Range/Units 16:12 20:42 06:08 RBC 3.84 L (4.2-5.4) M/uL Hgb 10.1 L (12.0-16.0) g/dL Hct 32.1 L (37-47) % MCHC 31.5 L (32-36) g/dL RDW Std Deviation 46.8 H (36.4-46.3) fL RDW Coeff of Mariam 15.2 H (11.5-14.5) % Lymph # (Auto) 1.15 L (1.2-3.4) K/uL [place] # (Auto) 0.94 H (0.11-0.59) K/uL Chloride (98-107) mmol/L Glucose (70-99) mg/dl POC Glucose 128 H 168 H (70-99) Calcium (8.5-10.1) mg/dl AST (15-37) U/L Total Protein (6.4-8.2) gm/dl Albumin (3.4-5.0) gm/dl Albumin/Globulin Ratio (0.9-2) 04/07/19 04/07/19 04/07/19 Range/Units 06:08 07:25 11:22 RBC (4.2-5.4) M/uL Hgb (12.0-16.0) g/dL Hct (37-47) % MCHC (32-36) g/dL RDW Std Deviation (36.4-46.3) fL RDW Coeff of Mariam (11.5-14.5) % Lymph # (Auto) (1.2-3.4) K/uL [place] # (Auto) (0.11-0.59) K/uL Chloride 111 H (98-107) mmol/L Glucose 102 H (70-99) mg/dl POC Glucose 114 H 164 H (70-99) Calcium 8.0 L (8.5-10.1) mg/dl AST 13 L (15-37) U/L Total Protein 6.1 L (6.4-8.2) gm/dl Albumin 2.5 L (3.4-5.0) gm/dl Albumin/Globulin Ratio 0.7 L (0.9-2) Diagnostic Findings Telemetry: SR, 70-80 BPM Reviewed echo, effusion is significantly improved although still present PG Care Time/CCT Total # of Minutes Spent Total Time Spent with Patient: Total time spent is greater than 50% in coordination of care (as documented) at patient's floor/unit and/or counseling patient:
--- NOTE | 2019-04-07 14:46 | Discharge Summary ---
Date of Service April 07, 2019 Admission HPI Per Admitting Provider Patient is a 73 years old female with past medical history of hypertension and GERD who presents to the emergency room with a complaint of chest pain for 2 days. Per patient pain is 6 of 10 in intensity and radiates to her left upper extremity and her jaw. Patient also reports having epigastric pain as well as abdominal pain which is vague in nature. Patient said that she did not have complete bowel movement for several days and one incomplete bowel movement occurred yesterday. This bowel movement was not satisfactory per patient. Patient did not notice any blood in the stool or melena. Patient states that nothing relieves her chest pain. Patient denies, fever, chills, frequency, urgency, melena, hematuria or dysuria, syncope or near syncope. EKG shows sinus tachycardia with a occasional PVCs, incomplete right bundle branch block and nonspecific T wave abnormalities. Labs are reviewed:WBC 12.38, hemoglobin 10.9, hematocrit 33.2, platelets 303, PT 11, INR 1.1, APTT 27.6, potassium low 3.4, sodium 136, BUN 14, creatinine 0.94, GFR 59.8, magnesium 1.6, alkaline phosphatase 139, troponin 0 0.015, patient had a lipid panel checked in April 01, 2019 which shows triglycerides of 114, cholesterol 117, LDL 53 and HDL of 41. Chest x-ray shows cardiomegaly without acute process. Decision was made to admit patient for observation on telemetry at PCU. Principal Diagnosis none Discharge Exam Constitutional WD/WN, vitals as above well developed and + obese Eyes PERRL, conjunctivae normal, anicteric sclerae ENMT external ear and nose normal, oropharynx normal Neck trachea midline, no thyromegaly Respiratory normal respiratory effort, lungs clear to auscultation Cardiovascular Heart Sounds: normal S1 and normal S2 Vessels: dorsalis pedis pulses present Gastrointestinal (Abdomen) normal bowel sounds, soft, nontender, no hepatosplenomegaly Musculoskeletal no cyanosis or clubbing, extremities motor strength 5/5 Skin no rashes, warm and dry Neurologic patellar DTR's 2+ bilat, sensation intact Psychiatric A+Ox3, euthymic affect Lymphatic no cervical or axillary lymphadenopathy Discharge Data Allergies Allergy/AdvReac Type Severity Reaction Status Date / Time linagliptin [From Tradjenta] AdvReac headaches Verified 10/29/18 12:44 / heart burn metformin AdvReac headaches Verified 10/29/18 12:43 Consultations 04/03/19 10:40 ED Decision to Admit Stat 04/03/19 14:58 Consult Cardiology Routine Ordered Studies 04/03/19 13:24 CT abd pelvis wo con Stat Hospital Course (1) Chest pain: Patient is feeling better today. Plan to discharge home today. Per echocardiogram pericardial effusion is smaller. Follow-up with cardiology within 2 weeks. Continue colchicine 0.6 mg b.i.d. for 3 to 6 months. Motrin 400 mg PO every 8 hours for 1 month. Patient was advised if any blood in stool or any abdominal discomfort stool hold ibuprofen and discussed with her doctor if she should restart it. Pantoprazole 40 mg p.o. daily for 1 months. Repeat TTE at your visit with cardiology in 1 to 2 weeks. If any worsening of symptoms report immediately to the emergency room. Full code (2) HTN (hypertension): Pressure well controlled. Continue amlodipine 5 mg p.o. daily and titrate up as needed if elevated blood pressure. (3) Abnormal EKG: It was related to pericarditis and pericardial effusion associated with electrolyte abnormality. Replenish electrolytes and treat pericarditis and pericardial effusion. (4) GERD (gastroesophageal reflux disease): Patient is switched to pantoprazole from omeprazole. She was advised to take pantoprazole while she is on ibuprofen. Patient should discontinue or take pantoprazole only as needed after she completes therapy with ibuprofen. (5) Ileitis: Possibly bacterial in origin. Patient reports no diarrhea. Patient was treated with ceftriaxone and metronidazole while in the hospital. Switched to cefdinir 300 mg p.o. twice daily for 5 additional days and metronidazole p.o. 3 times daily for 5 more days. 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 has been made for you with [facility], Dr. Lyman, for at 2:15pm. They ask that you arrive 15 minutes prior to your appointment. They are located in the building in front of the hospital on the third floor.) Diet: Heart Healthy and Low Sodium (2gm) Addtl Attending Provider Instructions: You were treated for pericarditis and pericardial effusion. Follow-up with cardiology Dr. Randolph within a 2 weeks.Continue colchicine 0.6 mg PO BID for 6 months. Ibuprofen 400 mg PO Q8hr for 30 days. Pantoprazole 40 mg PO daily. Cefdinir 300 mg PO BID for 5 days then stop and Metronidazole 500 mg PO TID until lasts. Follow up with [facility] for vaginal lesion within 2 weeks. Follow up PCP within 1 week. Pending Studies at Discharge: No Stand-Alone Forms: Call Back Authorization, [facility], Smoking Cessation Medications and DC Order Prescriptions: New cefdinir 300 mg Capsule 300 mg PO BID Qty: 10 RF: 0 metronidazole 500 mg Tablet 500 mg PO TID Qty: 14 RF: 0 pantoprazole 40 mg Tablet,Delayed Release (Dr/Ec) 40 mg PO DAILY Qty: 30 RF: 0 ibuprofen 400 mg tablet 400 mg PO Q8H Qty: 30 RF: 0 colchicine 0.6 mg capsule 0.6 mg PO BID Qty: 60 RF: 6 Continued amlodipine 5 mg tablet 5 mg PO DAILY Qty: 90 RF: 3 Discontinued omeprazole 40 mg capsule,delayed release(DR/EC) 40 mg PO DAILY RF: 0 Discharge Orders: Discharge Order (Routine); Ordered 04/07/19 Ordered By: Kristopher Linton Admission Data Admit Date/Time: 04/04/19 12:18 Attending Provider: Kristopher Linton Admit Provider: Kristopher Linton Primary Care Provider: Heather Machado Other Providers: Kristopher Linton ; Musa Keane
== END 2019-04-07 16:17 | disposition home or self-care (01) | DRG 316 ==
LOC: ED 08:58 → 2S 08:58